=== PATIENT | female | born 1965 | race Caucasian/White ===

== ENCOUNTER 2019-09-07 09:48 | Observation (INO) | payer OTHER ==
[2019-09-07] MEDS ORDERED: ASPIRIN 81 MG PO STA (10:02)
[2019-09-07] MEDS ORDERED: NITROGLYCERIN SL TABS 0.4 MG TAB SUBLINGUAL STA ×3 (10:02)
--- NOTE | 2019-09-07 10:05 | ED ---
General Adult HPI - General Chief complaint: Chest Pain Stated complaint: Chest pain Time Seen by Provider: 09/07/19 09:55 Source: patient, RN notes reviewed Mode of arrival: wheelchair Limitations: no limitations - History of Present Illness Initial comments: Patient is a pleasant 53-year-old female presenting to the emergency Department with back and chest discomfort. Onset of symptoms was a few days ago, waxing and waning. Discomfort has somewhat improved and is now mild rated a 3 or 4/10. Discomfort is difficult to describe. Patient states discomfort is mostly between her shoulder blades however is mild in her chest as well. Patient also states there is some odd sensation of her anterior chest. No history of similar symptoms previously. No dyspnea or nausea or diaphoresis. No leg pain or leg swelling. Symptoms do not worsen with movement or deep breaths. - Related Data Home Medications Medication Instructions Recorded Confirmed Naproxen Sodium [Aleve] 440 mg PO DAILY PRN 09/07/19 09/07/19 Allergies Allergy/AdvReac Type Severity Reaction Status Date / Time No Known Allergies Allergy Verified 09/07/19 11:39 Review of Systems ROS Statement: Those systems with pertinent positive or pertinent negative responses have been documented in the HPI. ROS Other: All systems not noted in ROS Statement are negative. Constitutional: Denies: fever Eyes: Denies: eye pain ENT: Denies: ear pain Respiratory: Denies: cough, dyspnea Cardiovascular: Reports: as per HPI, chest pain Endocrine: Denies: fatigue Gastrointestinal: Denies: abdominal pain Genitourinary: Denies: dysuria Musculoskeletal: Reports: as per HPI Skin: Denies: rash Neurological: Denies: weakness Past Medical History Past Medical History: No Reported History History of Any Multi-Drug Resistant Organisms: None Reported Past Surgical History: Hysterectomy Additional Past Surgical History / Comment(s): jaw surgery Past Psychological History: Depression Smoking Status: Current every day smoker Past Alcohol Use History: None Reported Past Drug Use History: None Reported General Exam Limitations: no limitations General appearance: alert, in no apparent distress Head exam: Present: normocephalic Eye exam: Present: normal appearance Neck exam: Present: normal inspection Respiratory exam: Present: normal lung sounds bilaterally. Absent: chest wall tenderness Cardiovascular Exam: Present: regular rate, normal rhythm Expanded Peripheral pulses: 2+: Radial (R), Radial (L), Femoral (R), Femoral (L) GI/Abdominal exam: Present: soft. Absent: tenderness Extremities exam: Present: normal inspection. Absent: pedal edema, calf tenderness Back exam: Absent: tenderness (Patient states discomfort she feels better with palpation) Neurological exam: Present: alert. Absent: motor sensory deficit Psychiatric exam: Present: normal affect, normal mood Skin exam: Present: normal color Course Vital Signs 09/07/19 09/07/19 09/07/19 09:52 10:06 10:32 Temperature 98.2 F Pulse Rate 67 67 Pulse Rate [ 64 Document Management Specialist ] Respiratory 18 18 Rate Blood Pressure 130/72 102/89 O2 Sat by Pulse 99 98 Oximetry EKG Findings - EKG Comments: EKG Findings:: Normal sinus rhythm 64. FL 148. QRS 84. QT 432. QTC 445. Normal axis. Low QRS voltage. No acute ST change. Medical Decision Making - Medical Decision Making Patient reevaluated and still having some mild discomfort. Patient updated on results and plan. Case was discussed in detail with Dr. hubbard, who will admit for Dr. cardona. - Lab Data Result diagrams: 09/07/19 10:25 09/07/19 10:25 Lab Results 09/07/19 09/07/19 09/07/19 Range/Units 10:25 10:25 10:25 WBC 10.2 (3.8-10.6) k/uL RBC 4.68 (3.80-5.40) m/uL Hgb 14.9 (11.4-16.0) gm/dL Hct 43.4 (34.0-46.0) % MCV 92.7 (80.0-100.0) fL MCH 31.8 (25.0-35.0) pg MCHC 34.2 (31.0-37.0) g/dL RDW 12.9 (11.5-15.5) % Plt Count 261 (150-450) k/uL Neutrophils % 53 % Lymphocytes % 36 % Monocytes % 6 % Eosinophils % 2 % Basophils % 1 % Neutrophils # 5.4 (1.3-7.7) k/uL Lymphocytes # 3.7 (1.0-4.8) k/uL Monocytes # 0.6 (0-1.0) k/uL Eosinophils # 0.2 (0-0.7) k/uL Basophils # 0.1 (0-0.2) k/uL PT 10.6 (9.0-12.0) sec INR 1.0 (<1.2) APTT 24.5 (22.0-30.0) sec D-Dimer 0.40 (<0.60) mg/L FEU Sodium 141 (137-145) mmol/L Potassium 4.1 (3.5-5.1) mmol/L Chloride 106 (98-107) mmol/L Carbon Dioxide 28 (22-30) mmol/L Anion Gap 7 mmol/L BUN 15 (7-17) mg/dL Creatinine 0.58 (0.52-1.04) mg/dL Est GFR (CKD-EPI)AfAm >90 (>60 ml/min/1.73 sqM) Est GFR (CKD-EPI)NonAf >90 (>60 ml/min/1.73 sqM) Glucose 112 H (74-99) mg/dL Calcium 10.0 (8.4-10.2) mg/dL Magnesium 1.9 (1.6-2.3) mg/dL Total Bilirubin 0.3 (0.2-1.3) mg/dL AST 33 (14-36) U/L ALT 26 (4-34) U/L Alkaline Phosphatase 80 (38-126) U/L Troponin I (0.000-0.034) ng/mL Total Protein 7.6 (6.3-8.2) g/dL Albumin 4.4 (3.5-5.0) g/dL 09/07/19 Range/Units 10:25 WBC (3.8-10.6) k/uL RBC (3.80-5.40) m/uL Hgb (11.4-16.0) gm/dL Hct (34.0-46.0) % MCV (80.0-100.0) fL MCH (25.0-35.0) pg MCHC (31.0-37.0) g/dL RDW (11.5-15.5) % Plt Count (150-450) k/uL Neutrophils % % Lymphocytes % % Monocytes % % Eosinophils % % Basophils % % Neutrophils # (1.3-7.7) k/uL Lymphocytes # (1.0-4.8) k/uL Monocytes # (0-1.0) k/uL Eosinophils # (0-0.7) k/uL Basophils # (0-0.2) k/uL PT (9.0-12.0) sec INR (<1.2) APTT (22.0-30.0) sec D-Dimer (<0.60) mg/L FEU Sodium (137-145) mmol/L Potassium (3.5-5.1) mmol/L Chloride (98-107) mmol/L Carbon Dioxide (22-30) mmol/L Anion Gap mmol/L BUN (7-17) mg/dL Creatinine (0.52-1.04) mg/dL Est GFR (CKD-EPI)AfAm (>60 ml/min/1.73 sqM) Est GFR (CKD-EPI)NonAf (>60 ml/min/1.73 sqM) Glucose (74-99) mg/dL Calcium (8.4-10.2) mg/dL Magnesium (1.6-2.3) mg/dL Total Bilirubin (0.2-1.3) mg/dL AST (14-36) U/L ALT (4-34) U/L Alkaline Phosphatase (38-126) U/L Troponin I <0.012 (0.000-0.034) ng/mL Total Protein (6.3-8.2) g/dL Albumin (3.5-5.0) g/dL - Radiology Data Radiology results: image reviewed ( x-ray shows no acute process) Disposition Clinical Impression: Chest pain Disposition: ADMITTED IP TO THIS HOSP Is patient prescribed a controlled substance at d/c from ED?: No Referrals: Joseph Ramsey MD [Primary Care Provider] - 1-2 days Decision Time: 11:57
--- NOTE | 2019-09-07 10:48 | XR ---
EXAMINATION TYPE: XR chest 2V DATE OF EXAM: 09/07/2019 COMPARISON: 12/05/2013 HISTORY: Chest pain TECHNIQUE: Frontal and lateral views of the chest are obtained. FINDINGS: There is no focal air space opacity, pleural effusion, or pneumothorax seen. The cardiac silhouette size is within normal limits. The osseous structures are intact. IMPRESSION: No acute cardiopulmonary process.
[2019-09-07 11:08] LABS: ALT 26 U/L (4-34); AST 33 U/L (14-36); African American GFR (CKD) >90 (>60 ml/min/1.73 sqM); Albumin 4.4 g/dL (3.5-5.0); Alkaline Phosphatase 80 U/L (38-126); Anion Gap 7 mmol/L; Blood Urea Nitrogen 15 mg/dL (7-17); Carbon Dioxide 28 mmol/L (22-30); Chloride 106 mmol/L (98-107); D-Dimer 0.4 mg/L FEU (<0.60); Glucose 112 mg/dL (74-99); Magnesium 1.9 mg/dL (1.6-2.3); Non-African American GFR(CKD) >90 (>60 ml/min/1.73 sqM); Partial Thromboplastin Time 24.5 sec (22.0-30.0); Potassium 4.1 mmol/L (3.5-5.1); Prothrombin Time 10.6 sec (9.0-12.0); Sodium 141 mmol/L (137-145); Total Bilirubin 0.3 mg/dL (0.2-1.3); Total Protein 7.6 g/dL (6.3-8.2)
[2019-09-07 11:18] LABS: Basophils # (A) 0.1 k/uL (0-0.2); Basophils % (A) 1 %; Eosinophils # (A) 0.2 k/uL (0-0.7); Eosinophils % (A) 2 %; HCT 43.4 % (34.0-46.0); HGB 14.9 gm/dL (11.4-16.0); Lymphocytes # (A) 3.7 k/uL (1.0-4.8); Lymphocytes % (A) 36 %; MCH 31.8 pg (25.0-35.0); MCHC 34.2 g/dL (31.0-37.0); MCV 92.7 fL (80.0-100.0); Mean Platelet Volume 7.5; Monocytes # (A) 0.6 k/uL (0-1.0); Monocytes % (A) 6 %; Neutrophils # (A) 5.4 k/uL (1.3-7.7); Neutrophils % (A) 53 %; Platelet Count 261 k/uL (150-450); RBC 4.68 m/uL (3.80-5.40); RDW 12.9 % (11.5-15.5); WBC 10.2 k/uL (3.8-10.6)
[2019-09-07] MEDS ORDERED: NITROGLYCERIN SL TABS 0.4 MG TAB SUBLINGUAL PRN (11:57)
[2019-09-07] MEDS: NITROGLYCERIN OINT 1 INCH/GM PACKET TOPICAL SCH ×2 (14:48→18:57)
--- NOTE | 2019-09-07 17:19 | P.HPIM ---
History of Present Illness this is a pleasant 53 yo F with past medical history of gerd , hiatal hernia , irritable bowel syndrome who presents with chest. pt states she has pain between her both shoulder blades, and on the chest anteriorly radiating to the right arm that is started about 4 days ago, about 4-5/10 in severity coming down to 2/10 now, dull in character associated with dry cough no dyspnea , no abd pain or palpitation or dizziness pt smokes about one pack per day , no alcohol or illicit drug labs reviewed, unremarkable CBC, BMP, liver enz , troponin is negative , EKG normal sinus rhythem at [address]-t changes, chest xray: no active issue Review of Systems CONSTITUTIONAL: No fever, no malaise, no fatigue. HEENT: No recent visual problems or hearing problems. Denied any sore throat. CARDIOVASCULAR: No orthopnea, PND, no palpitations, no syncope. PULMONARY: No shortness of breath, no cough, no hemoptysis. GASTROINTESTINAL: No diarrhea, no nausea, no vomiting, no abdominal pain. Normoactive bowel sounds. NEUROLOGICAL: No headaches, no weakness, no numbness. HEMATOLOGICAL: Denies any bleeding or petechiae. GENITOURINARY: Denies any burning micturition, frequency, or urgency. MUSCULOSKELETAL/RHEUMATOLOGICAL: Denies any joint pain, swelling, or any muscle pain. ENDOCRINE: Denies any polyuria or polydipsia. Past Medical History Past Medical History: GERD/Reflux Additional Past Medical History / Comment(s): DJD, hiatal hernia, IBS, UTI History of Any Multi-Drug Resistant Organisms: None Reported Past Surgical History: Hysterectomy Additional Past Surgical History / Comment(s): jaw surgery, colonoscopy. Past Anesthesia/Blood Transfusion Reactions: No Reported Reaction, Motion Sickness Additional Past Anesthesia/Blood Transfusion Reaction / Comment(s): Pt has clausterphobia Smoking Status: Current every day smoker - Past Family History Mother Family Medical History: Cancer Additional Family Medical History / Comment(s): Mother had breast cancer and surgery for a perforated ulcer. Father History Unknown: Yes Additional Family Medical History / Comment(s): Father in a MVA when pt was little. Medications and Allergies Home Medications Medication Instructions Recorded Confirmed Type Citalopram Hydrobromide [CeleXA] 60 mg PO DAILY 09/07/19 09/07/19 History Naproxen Sodium [Aleve] 440 mg PO DAILY PRN 09/07/19 09/07/19 History lamoTRIgine [LaMICtal] 100 mg PO BID 09/07/19 09/07/19 History risperiDONE [RisperDAL] 1 mg PO HS 09/07/19 09/07/19 History Allergies Allergy/AdvReac Type Severity Reaction Status Date / Time No Known Allergies Allergy Verified 09/07/19 11:57 Physical Exam Vitals: Vital Signs Temp Pulse Pulse Resp BP BP Pulse Ox 09/07/19 13:52 98.2 F 65 18 117/78 96 09/07/19 12:03 61 18 115/76 97 09/07/19 10:32 67 18 102/89 98 09/07/19 10:06 64 09/07/19 09:52 98.2 F 67 18 130/72 99 Intake and Output 09/07/19 09/07/19 09/07/19 06:59 14:59 22:59 Other: Weight 95.254 kg GENERAL: The patient is alert and oriented x3, not in any acute distress. Well developed, well nourished. HEENT: Pupils are round and equally reacting to light. EOMI. No scleral icterus. No conjunctival pallor. Normocephalic, atraumatic. No pharyngeal erythema. No thyromegaly. CARDIOVASCULAR: S1 and S2 present. No murmurs, rubs, or gallops. PULMONARY: Chest is clear to auscultation, no wheezing or crackles. ABDOMEN: Soft, nontender, nondistended, normoactive bowel sounds. No palpable organomegaly. MUSCULOSKELETAL: No joint swelling or deformity. EXTREMITIES: No cyanosis, clubbing, or pedal edema. NEUROLOGICAL: Gross neurological examination did not reveal any focal deficits. SKIN: No rashes. Results CBC & Chem 7: 09/07/19 10:25 09/07/19 10:25 Labs: Abnormal Lab Results - Last 24 Hours (Table) 09/07/19 Range/Units 10:25 Glucose 112 H (74-99) mg/dL Thrombosis Risk Factor Assmnt - Choose All That Apply Any of the Below Risk Factors Present?: Yes Each Factor Represents 1 point: Age 41-60 years, Hx of IBD, Obesity (BMI >25) Other Risk Factors: No Other congenital or acquired thrombophilia - If yes, enter type in comment: No Thrombosis Risk Factor Assessment Total Risk Factor Score: 3 Thrombosis Risk Factor Assessment Level: Moderate Risk Assessment and Plan Assessment: mild chest pain , rule out cardiac causes nicotine dependance hiatal hernia irritable bowel syndrome gastroesophageal reflux Plan: this is a pleasant 53 yo F who presents with chest pain , we will do serial troponin and ekg, cardiology consult Labs and medication were reviewed.. Continue same treatment. Continue with symptomatic treatment. Resume home medication. Monitor lytes and vitals. DVT and GI prophylaxis. Further recommendations of the clinical course of the patient DVT prophylaxis: Subcutaneous heparin GI Prophylaxis: Pepcid Prognosis is guarded
[2019-09-07] MEDS: NICOTINE 21MG/24HR PATCH TRANSDERM SCH (18:55)
[2019-09-07] MEDS: risperiDONE 1 MG TAB PO SCH ×3 (20:25→22:44)
[2019-09-07] MEDS: HEPARIN SODIUM,PORCINE 5,000 UNIT/ML 1 ML VIAL SQ SCH (20:26)
[2019-09-07] MEDS: FAMOTIDINE 20 MG/2 ML VIAL IV SCH (20:26)
[2019-09-07] MEDS: lamoTRIgine 100 MG TAB PO SCH ×2 (20:26→22:43)
[2019-09-08] MEDS: NITROGLYCERIN OINT 1 INCH/GM PACKET TOPICAL SCH ×2 (01:17→05:30)
[2019-09-08 06:38] LABS: Cholesterol 239 mg/dL (<200); HDL Cholesterol 40 mg/dL (40-60); LDL Cholesterol,Calculated 133 mg/dL (0-99); Triglycerides 328 mg/dL (<150)
--- NOTE | 2019-09-08 12:05 | P.EN ---
19. The patient and she was in stress test
[2019-09-08] MEDS ORDERED: DOBUTamine DRIP for NUC MED 500 MG in DEXTROSE/WATER 1 250ML.BAG IV ONE (12:45)
[2019-09-08] MEDS: CITALOPRAM HYDROBROMIDE 20 MG TAB PO SCH (14:02)
[2019-09-08] MEDS: lamoTRIgine 100 MG TAB PO SCH ×2 (14:02→20:38)
[2019-09-08] MEDS: NICOTINE 21MG/24HR PATCH TRANSDERM SCH (14:03)
[2019-09-08] MEDS: ASPIRIN 325 MG TAB PO SCH (14:03)
[2019-09-08] MEDS: FAMOTIDINE 20 MG/2 ML VIAL IV SCH ×2 (14:03→20:38)
[2019-09-08] MEDS: HEPARIN SODIUM,PORCINE 5,000 UNIT/ML 1 ML VIAL SQ SCH (14:03)
--- NOTE | 2019-09-08 14:52 | ECHOF ---
Referral Reason:cp MEASUREMENTS -------- HEIGHT: 167.6 cm WEIGHT: 95.3 kg BP: 131/85 RVIDd: 3.4 cm (< 3.3) IVSd: 1.1 cm (0.6 - 1.1) LVIDd: 4.7 cm (3.9 - 5.3) LVPWd: 1.1 cm (0.6 - 1.1) IVSs: 1.8 cm LVIDs: 2.5 cm LVPWs: 1.7 cm LAESV Index (A-L): 14.36 ml/m Ao Diam: 2.8 cm (2.0 - 3.7) AV Cusp: 1.6 cm (1.5 - 2.6) LA Diam: 2.8 cm (2.7 - 3.8) MV EXCURSION: 14.577 mm (> 18.000) MV EF SLOPE: 85 mm/s (70 - 150) EPSS: 0.6 cm MV E Maurice: 0.98 m/s MV DecT: 177 ms MV A Maurice: 0.56 m/s MV E/A Ratio: 1.75 RAP: 5.00 mmHg RVSP: 23.89 mmHg FINDINGS -------- Sinus rhythm. This was a technically good study. The left ventricular size is normal. Left ventricular wall thickness is normal. Overall left vent ricular systolic function is normal with, an EF between 55 - 60 %. The diastolic filling pattern is normal for the age of the patient 11.92. The right ventricle is mildly enlarged. The left atrial size is normal. Normal LA size by volume 22+/-6 ml/m2. The right atrial size is normal. The aortic valve is trileaflet and appears structurally normal. The mitral valve is normal. The mitral valve leaflets are mildly thickened. Mild mitral regurgita tion is present. The tricuspid valve appears structurally normal. Mild tricuspid regurgitation present. Right vent ricular systolic pressure is normal at < 35 mmHg. There is no pulmonic regurgitation present. The aortic root size is normal. Normal inferior vena cava with normal inspiratory collapse consistent with estimated right atrial pre ssure of 5 mmHg. There is no pericardial effusion. CONCLUSIONS -------- 1. Sinus rhythm. 2. This was a technically good study. 3. The left ventricular size is normal. 4. Left ventricular wall thickness is normal. 5. Overall left ventricular systolic function is normal with, an EF between 55 - 60 %. 6. The diastolic filling pattern is normal for the age of the patient 11.92 7. The right ventricle is mildly enlarged. 8. The left atrial size is normal. 9. Normal LA size by volume 22+/-6 ml/m2. 10. The right atrial size is normal. 11. The aortic valve is trileaflet and appears structurally normal. 12. The mitral valve is normal. 13. The mitral valve leaflets are mildly thickened. 14. Mild mitral regurgitation is present. 15. The tricuspid valve appears structurally normal. 16. Mild tricuspid regurgitation present. 17. Right ventricular systolic pressure is normal at < 35 mmHg. 18. There is no pulmonic regurgitation present. 19. The aortic root size is normal. 20. Normal inferior vena cava with normal inspiratory collapse consistent with estimated right atrial pressure of 5 mmHg. 21. There is no pericardial effusion. [employer] MANAGER: Aurora Carr RDCS
[2019-09-08] MEDS ORDERED: HYDROcodone/APAP 7.5-325MG 1 EACH TAB PO PRN (16:29)
--- NOTE | 2019-09-08 16:33 | P.PN ---
Subjective this is a pleasant 53 yo F with past medical history of gerd , hiatal hernia , irritable bowel syndrome who presents with chest. pt states she has pain between her both shoulder blades, and on the chest anteriorly radiating to the right arm that is started about 4 days ago, about 4-5/10 in severity coming down to 2/10 now, dull in character associated with dry cough no dyspnea , no abd pain or palpitation or dizziness pt smokes about one pack per day , no alcohol or illicit drug labs reviewed, unremarkable CBC, BMP, liver enz , troponin is negative , EKG normal sinus rhythem at [address]-t changes, chest xray: no active issue 09/08/2019 pt still has the same pain from yesterday, no new symptom , she does not look in significant distress, stress test done by vice president of marketing and result is pending we check BP on both arms with no difference, we will keep monitoring d/w staff Objective - Vital Signs Vital signs: Vital Signs Temp 98.4 F 09/08/19 16:26 Pulse 58 L 09/08/19 16:26 Resp 18 09/08/19 16:26 BP 111/61 09/08/19 16:26 Pulse Ox 96 09/08/19 16:26 Intake & Output 09/07/19 09/08/19 09/08/19 18:59 06:59 18:59 Intake Total 480 Balance 480 Weight 95.254 kg 95.25 kg Intake: Oral 480 Other: Voiding Method Toilet Toilet Toilet # Voids 1 - Exam GENERAL: The patient is alert and oriented x3, not in any acute distress. Well developed, well nourished. HEENT: Pupils are round and equally reacting to light. EOMI. No scleral icterus. No conjunctival pallor. Normocephalic, atraumatic. No pharyngeal erythema. No thyromegaly. CARDIOVASCULAR: S1 and S2 present. No murmurs, rubs, or gallops. PULMONARY: Chest is clear to auscultation, no wheezing or crackles. ABDOMEN: Soft, nontender, nondistended, normoactive bowel sounds. No palpable organomegaly. -MUSCULOSKELETAL: No joint swelling or deformity. mild tenderness over the right scapula EXTREMITIES: No cyanosis, clubbing, or pedal edema. NEUROLOGICAL: Gross neurological examination did not reveal any focal deficits. SKIN: No rashes. - Labs CBC & Chem 7: 09/07/19 10:25 09/07/19 10:25 Labs: Abnormal Lab Results - Last 24 Hours (Table) 09/08/19 Range/Units 05:43 Triglycerides 328 H (<150) mg/dL Cholesterol 239 H (<200) mg/dL LDL Cholesterol, Calc 133 H (0-99) mg/dL Assessment and Plan Assessment: mild chest pain , rule out cardiac causes nicotine dependance hiatal hernia irritable bowel syndrome gastroesophageal reflux Plan: this is a pleasant 53 yo F who presents with chest pain , we will do serial troponin and ekg, cardiology consult, follow up stress test result, pain management Labs and medication were reviewed.. Continue same treatment. Continue with symptomatic treatment. Resume home medication. Monitor lytes and vitals. DVT and GI prophylaxis. Further recommendations of the clinical course of the patient DVT prophylaxis: Subcutaneous heparin GI Prophylaxis: Pepcid Prognosis is guarded
--- NOTE | 2019-09-08 18:47 | ECHOS ---
STRESS ECHOCARDIOGRAM DOBUTAMINE STRESS ECHOCARDIOGRAM: INDICATIONS: Chest pain. MEDICATIONS: Aleve, Risperdal, Lamictal, Celexa BASELINE HEART RATE: 60 BASELINE BLOOD PRESSURE: 111/77 MAXIMUM HEART RATE: 141 MAXIMUM BLOOD PRESSURE: 171/65 85% MPHR: 141 100% MPHR: 166 METS: MAXIMUM STAGE REACHED: 4 mcg/kg per minute TOTAL EXERCISE TIME: CLINICAL INFORMATION: Peak heart rate of 141 was achieved. Maximum blood pressure of 171/65 mmHg was noted. Resting EKG shows normal sinus rhythm with normal QR interval and QRS duration and normal ST-T waves. No ST-segment depression suggestive of ischemia is noted. The baseline echocardiographic images reveal normal left ventricular chamber size with normal left ventricular systolic function. In the immediate post-exercise period normal increase in the wall thickness and contractility is noted. FINAL IMPRESSION: This dobutamine stress echocardiographic study is negative for stress-induced ischemia. EKG portion of the stress test is not suggestive of ischemia. MMODL / IJN: [id number] /
[2019-09-09] MEDS: HEPARIN SODIUM,PORCINE 5,000 UNIT/ML 1 ML VIAL SQ SCH ×2 (00:44→08:32)
[2019-09-09 07:45] VITALS: RESP 18; TEMP 98.1
[2019-09-09] MEDS: FAMOTIDINE 20 MG/2 ML VIAL IV SCH (08:32)
[2019-09-09] MEDS: ASPIRIN 325 MG TAB PO SCH (08:32)
[2019-09-09] MEDS: NICOTINE 21MG/24HR PATCH TRANSDERM SCH (08:32)
--- NOTE | 2019-09-09 09:25 | XR ---
EXAMINATION TYPE: XR scapula RT DATE OF EXAM: 09/09/2019 COMPARISON: NONE HISTORY: Right shoulder and scapular pain and numbness. TECHNIQUE: 2 views of the right scapula were obtained FINDINGS: There is moderate right acromioclavicular arthropathy with joint space narrowing, capsular hypertrophy and small marginal osteophytes. No acute displaced fracture of the right scapula. No susp icious osseous lesion. Visualized right ribs remain intact. IMPRESSION: No right scapular pathology seen radiographically. Moderate right acromioclavicular arthr opathy.
--- NOTE | 2019-09-09 09:29 | XR ---
EXAMINATION TYPE: XR thoracic spine complete DATE OF EXAM: 09/09/2019 CLINICAL HISTORY: Pain and numbness. Right scapular pain. Thoracic back pain. TECHNIQUE: Frontal, lateral, and swimmer's view of thoracic spine are obtained. COMPARISON: None. FINDINGS: Thoracic spine show satisfactory alignment without evidence of acute fracture or dislocatio n. Mild multilevel degenerative disc disease is seen as there are small anterior osteophytes of the thoracic spine. Vertebral body heights and disc space heights are preserved. Visualized ribs are unre markable. IMPRESSION: No acute fracture or dislocation is seen in the thoracic spine. Mild multilevel degenera tive disc disease of the thoracic spine.
--- NOTE | 2019-09-09 10:41 | XR ---
EXAMINATION TYPE: XR cervical spine comp DATE OF EXAM: 09/09/2019 TECHNIQUE: Frontal, lateral, oblique, swimmers, and open mouth view of the cervical spine are obtaine d. HISTORY: Neck pain and numbness COMPARISON: None FINDINGS: There is straightening of usual cervical lordosis. The cervical spine is visualized from C1 thru the top of the C6 level, it is satisfactory in alignment without evidence of acute fracture or dislocation. Intervertebral disc space narrowing is seen at C5-C6 with anterior osteophyte. Oblique i mages demonstrate neural foraminal narrowing on the left at C5-C6 and to a lesser degree on the right at C5-C6. Postsurgical changes of the mandible are partially visualized. The pre-vertebral soft tiss ue appears within normal limits. The C1-C2 articulation is within normal limits on the open mouth vi ew. IMPRESSION: 1. No acute fracture or dislocation is seen in the upper or mid cervical spine. Cervicothoracic junct ion is partially obscured. 2. Degenerative disc disease is most focal and moderate at C5-C6 creating bilateral neural foraminal narrowing radiographically. MRI cervical spine could further assess degree of neural foraminal narrow ing/stenosis. 3. Straightening of the usual cervical lordosis, which may be on the basis of muscular strain/spasm o r patient positioning.
[2019-09-09] MEDS: CITALOPRAM HYDROBROMIDE 20 MG TAB PO SCH (12:19)
[2019-09-09] MEDS: lamoTRIgine 100 MG TAB PO SCH (12:19)
[2019-09-09] MEDS ORDERED: LIDOCAINE 5% PATCH TOPICAL SCH (14:45)
[2019-09-09 15:47] VITALS: BP 109/73; PULSE 50
--- NOTE | 2019-09-09 17:06 | P.CNNES ---
History of Present Illness Consult date: 09/09/19 Requesting physician: Arnold Forman Reason for Consult: Right arm numbness History of Present Illness: Patient is a 53-year-old female, who has developed pain over the right shoulder blade and numbness of the right pectoral region in the right armpit region since 09/04/2019. Patient denies any trauma, lifting heavy furniture. Denies any neck pain. Once in a while she feels pain in the right side of the c hest, although it's mainly numbness. Denies any symptoms related to the right upper extremity. Denies any symptoms with the vision, speech swallow. Patient states the pain and the numbness in the region described has been stable since its onset, not getting worse or better. She does complain of generalized weakness but denies any focal weakness. Patient does smoke 1 pack per day for 20 years, denies any alcohol. She denies diabetes, hypertension. Patient's CBC, PT/PTT, Chem-20 is normal. Her cholesterol is 239, LDL 133, HDL 40 and triglycerides 328. Patient had x-ray of the thoracic spine which revealed no acute fracture or dislocation. Mild multilevel degenerative disc disease of the thoracic spine. X-ray of the cervical spine showed no acute fracture or to sedation into upper or mid cervical spine. Cervical thoracic junction is partially obscured. Degenerative disc disease is most focal and moderate at C5 6 creating bilateral neural foraminal narrowing radiographically. MRI cervical spine could further assess degree of neural foraminal narrowing/stenosis. Straightening of the usual cervical lordosis, which may be on the basis of muscular strain/spasm or patient positioning. X-ray of the scapula was normal. Moderate right acromioclavicular arthropathy. 2-D echo showed sinus rhythm, EF 55-60% normal left atrial size. Chest x-ray was normal. No mass. Review of Systems As above in detail. Otherwise completely unremarkable. Numbness of right pectoral region, right armpit. Generalized weakness. Denies headache diplopia, loss of vision. Denies nausea vomiting diarrhea. Past Medical History Past Medical History: GERD/Reflux Additional Past Medical History / Comment(s): DJD, hiatal hernia, IBS, UTI History of Any Multi-Drug Resistant Organisms: None Reported Past Surgical History: Hysterectomy Additional Past Surgical History / Comment(s): jaw surgery, colonoscopy. Past Anesthesia/Blood Transfusion Reactions: No Reported Reaction, Motion Sickness Additional Past Anesthesia/Blood Transfusion Reaction / Comment(s): Pt has clausterphobia Smoking Status: Current every day smoker - Past Family History Mother Family Medical History: Cancer Additional Family Medical History / Comment(s): Mother had breast cancer and surgery for a perforated ulcer. Father History Unknown: Yes Additional Family Medical History / Comment(s): Father in a MVA when pt was little. Medications and Allergies Home Medications Medication Instructions Recorded Confirmed Type Citalopram Hydrobromide [CeleXA] 60 mg PO DAILY 09/07/19 09/07/19 History lamoTRIgine [LaMICtal] 100 mg PO BID 09/07/19 09/07/19 History risperiDONE [RisperDAL] 1 mg PO HS 09/07/19 09/07/19 History Aspirin 325 mg PO DAILY #20 tab 09/09/19 Rx Capsaicin Cream [Trixaicin Cream] 1 applic TOPICAL BID 7 Days #1 09/09/19 Rx applic Famotidine [Pepcid] 20 mg PO Q12HR #30 tab 09/09/19 Rx HYDROcodone/APAP 7.5-325MG [[place] 1 each PO Q12H PRN 2 Days #4 tab 09/09/19 Rx 7.5-325] Nicotine 21Mg/24Hr Patch [Habitrol] 1 patch TRANSDERM DAILY #20 patch 09/09/19 Rx Allergies Allergy/AdvReac Type Severity Reaction Status Date / Time No Known Allergies Allergy Verified 09/07/19 11:57 Physical Examination - Vital Signs Vital Signs: Vital Signs Temp Pulse Pulse Pulse Pulse Resp BP 09/09/19 15:46 98.1 F 50 L 18 09/09/19 11:27 98.1 F 55 L 18 09/09/19 08:30 18 09/09/19 07:44 98.1 F 62 18 09/09/19 03:59 97.8 F 56 L 16 113/67 09/09/19 03:25 57 L 16 09/08/19 23:35 57 L 16 09/08/19 22:56 97.9 F 91 16 09/08/19 19:30 60 68 54 L 76 16 09/08/19 19:29 97.8 F 76 16 104/56 BP Pulse Ox 09/09/19 15:46 109/73 97 09/09/19 11:27 110/73 98 09/09/19 08:30 09/09/19 07:44 113/72 96 09/09/19 03:59 09/09/19 03:25 09/08/19 23:35 09/08/19 22:56 107/61 95 09/08/19 19:30 09/08/19 19:29 96 Intake and Output 09/09/19 09/09/19 09/09/19 06:59 14:59 22:59 Intake Total 776 200 Balance 776 200 Intake: Oral 476 Other 300 200 Other: Voiding Method Toilet Toilet # Voids 1 On examination patient is a middle aged female, in no distress. Patient is alert awake oriented to time place and person. Speech and language functions are normal. Attention and concentration fund of knowledge is adequate. On cranial nerve examination pupils are round and reacting to light visual ernandez are full on confrontation, extraocular muscles are intact with no nystagmus. Face is symmetric and tongue protrudes the midline. Palatal elevation and sensation normal. No Lizabeth's syndrome noted on either side. On muscle strength testing there is no pronator drift and the strength is normal in arms and legs distally and proximally. Reflexes are 1+ to 2 in the upper limbs, 2+ in the lower limbs and plantars downgoing no clonus. Sensory touch is equal. She does have decreased sensation over the right pectoral region. No ataxia for [id number], tone and bulk of muscles normal. There is no carotid bruit or murmur S1 and S2 audible. Abdomen soft nontender. No peripheral edema. Results - Laboratory Findings CBC and BMP: 09/07/19 10:25 09/07/19 10:25 Abnormal Lab Findings: Abnormal Labs 09/07/19 09/08/19 10:25 05:43 Glucose 112 H Triglycerides 328 H Cholesterol 239 H LDL Cholesterol, Calc 133 H Assessment and Plan Assessment: * 53-year-old female admitted with new onset right scapular pain with numbness of the right pectoral region and the right armpit, somewhat in T1-T2-T3 dermatomal distribution on the right, since 06/04/2020. Rule out thoracic disc herniation. No evidence of Lizabeth syndrome. * Tobacco user Plan: * Suggested MRI of the cervical and thoracic spine. Patient states that she is very severely claustrophobic, and would like an open MRI. This can be done as an outpatient and follow-up with one of the neurologist in town. She is otherwise clear for discharge from neurology point.
[2019-09-09] MEDS ORDERED: FAMOTIDINE 20 MG TAB PO SCH (21:00)
--- NOTE | 2019-09-09 22:48 | P.DS ---
Providers Date of admission: 09/07/19 11:57 Attending physician: Arnold Forman MD Consults: 09/07/19 11:57 Consult Physician Urgent Consulting Provider: Maribell Cruz Consult Reason/Comments: cp and bp Do you want consulting provider notified?: Yes 09/09/19 10:39 Consult Physician Routine Consulting Provider: Susan Varner Consult Reason/Comments: right arm numbness Do you want consulting provider notified?: Yes Primary care physician: Roxy Ruiz Hospital Course: Diagnoses: -Right side chest pain , associated with numbness on the right side extending into the proximal part of the medial arm, stable over several days. cardiac and pulmonary causes were ruled out. Could be related to her osteoarthritis of the spine, recommended open MRI for cervical and thoracic spine as outpt and pt agrees -nicotine dependance -hiatal hernia -irritable bowel syndrome -gastroesophageal reflux hospital course: this is a pleasant 53 yo F with past medical history of gerd , hiatal hernia , irritable bowel syndrome who presents with chest pain and numbness on the right side of the chest extending into the proximal medial arm, stable over several days. He's down with pain medication. Supervisor Cabinetmaker evaluated the patient was stress test which came back negative. D-dimer is negative. Spine x-ray shows degenerative disease of the thoracic spine which might contribute to her symptoms. Neurologist has been consulted as well who evaluated the patient and recommended open MRI for cervical and thoracic spine to rule disc herniation, (pt is severely claustrophobic) a follow up appointment is made for the pt with as outpt On the day of discharge patient denies other symptoms, no dyspnea, no coughing, no change in urine or bowel habits, no fever. Patient states she can go home a nd follow-up as an outpatient Patient was cleared for discharge by all consultants including cardiology and neurology Problems and management plan were discussed with the patient and he verbalized understanding and acceptance Patient was found stable and can be discharged home however he needs follow-up as an outpatient. Patient was instructed to follow up with PCP within one week and patient agrees. per staff pt agrees with appointments with pcp and neurology Gen: patient is a AAOx3, no distress CVS: S1-S2, RRR, no murmur Lungs: B/L CTA, no wheezing Abdomen: soft, no distention, no tenderness, positive bowel sounds Extremity: no leg edema or induration Time spent more than 35 minutes Plan - Discharge Summary Discharge Rx Participant: No New Discharge Prescriptions: New RX: Aspirin 325 mg PO DAILY #20 tab RX: Nicotine 21Mg/24Hr Patch [Habitrol] 1 patch TRANSDERM DAILY #20 patch RX: HYDROcodone/APAP 7.5-325MG [[place] 7.5-325] 1 each PO Q12H PRN 2 Days #4 tab PRN Reason: Pain RX: Famotidine [Pepcid] 20 mg PO Q12HR #30 tab RX: Capsaicin Cream [Trixaicin Cream] 1 applic TOPICAL BID 7 Days #1 applic Continue RX: risperiDONE [RisperDAL] 1 mg PO HS RX: lamoTRIgine [LaMICtal] 100 mg PO BID RX: Citalopram Hydrobromide [CeleXA] 60 mg PO DAILY Discontinued RX: Naproxen Sodium [Aleve] 440 mg PO DAILY PRN PRN Reason: Pain Discharge Medication List RX: Citalopram Hydrobromide [CeleXA] 60 mg PO DAILY 09/07/19 [History] RX: lamoTRIgine [LaMICtal] 100 mg PO BID 09/07/19 [History] RX: risperiDONE [RisperDAL] 1 mg PO HS 09/07/19 [History] RX: Aspirin 325 mg PO DAILY #20 tab 09/09/19 [Rx] RX: Capsaicin Cream [Trixaicin Cream] 1 applic TOPICAL BID 7 Days #1 applic 09/09/19 [Rx] RX: Famotidine [Pepcid] 20 mg PO Q12HR #30 tab 09/09/19 [Rx] RX: HYDROcodone/APAP 7.5-325MG [[place] 7.5-325] 1 each PO Q12H PRN 2 Days #4 tab 09/09/19 [Rx] RX: Nicotine 21Mg/24Hr Patch [Habitrol] 1 patch TRANSDERM DAILY #20 patch 09/09/19 [Rx] Follow up Appointment(s)/Referral(s): Joseph Ramsey MD [Primary Care Provider] - 09/16/19 10:50 am Shelton Lozano MD [STAFF PHYSICIAN] - 2 Weeks Dasha Ochoa MD [STAFF PHYSICIAN] - 09/15/19 9:30 am (Follow up in the office with Dr. Raul Ochoa as scheduled for you) Activity/Diet/Wound Care/Special Instructions: Patient has been recommended to have a Cervical and Thoracic Spine Open MRI as outpatient with Dr. Diana Ochoa for right sided numbness Discharge Disposition: HOME SELF-CARE
== END 2019-09-09 17:30 | disposition home or self-care (01) ==
LOC: EC 09:48 → 1SOBS 11:57
PROVIDERS: ADMIT Internal Medicine; ATTEND Internal Medicine
DX: R07.9 Chest pain, unspecified (principal); M25.511 Pain in right shoulder; R20.0 Anesthesia of skin; F17.200 Nicotine dependence, unspecified, uncomplicated; F32.9 Major depressive disorder, single episode, unspecified; K44.9 Diaphragmatic hernia without obstruction or gangrene; K58.9 Irritable bowel syndrome, unspecified; K21.9 Gastro-esophageal reflux disease without esophagitis; M50.322 Other cervical disc degeneration at C5-C6 level; M48.02 Spinal stenosis, cervical region; M47.814 Spondylosis without myelopathy or radiculopathy, thoracic region; Z80.3 Family history of malignant neoplasm of breast; Z79.899 Other long term (current) drug therapy; Z90.710 Acquired absence of both cervix and uterus
CPT/HCPCS: 93005 ×2; 96372 ×3; 96374; 96376 ×2; 99285; 36415; 93306; 93351; 85379; 80061; 80053; 83735; 84484; 85025; 85610; 85730; 72072; 72050; 73010; 71046; G0378 ×3; S4990 ×3; J1250; J1644 ×3

== ENCOUNTER → 2019-10-29 | Outpatient (CLI) | payer OTHER ==
--- NOTE | 2019-10-29 10:36 | XR ---
EXAMINATION TYPE: XR skull limited DATE OF EXAM: 10/29/2019 COMPARISON: NONE HISTORY: MRI clearance TECHNIQUE: 2 views of the skull were obtained FINDINGS: There are surgical cortical screws of the maxilla, 3 on each side. Dental fillings are seen . No other hardware is identified. No free metallic radiopaque densities or foreign bodies. IMPRESSION: Maxillary cortical screws that may create obscuration of the surrounding structures but a ppear MRI safe.
== END | disposition home or self-care (01) ==
LOC: RADXRMAIN 09:37
PROVIDERS: ATTEND Psychiatry & Neurology Neurology
DX: Z01.818 Encounter for other preprocedural examination (principal)
CPT/HCPCS: 70250